=== PATIENT | female | born 1940 | race Caucasian/White ===

== ENCOUNTER → 2023-03-11 | Outpatient (CLI) | payer MEDICARE, OTHER ==
[~2023-03-11] MED LIST: ATEN100T PO; CALC500C16 PO; HYDR12CA PO; LIDOCAINE 1% MDV 20ML VIAL As Ordered ONE; LOTR52CA PO; LOVA40TA PO; MECL-136 PO; NOXI1TAB PO; PROB250C PO; TREL1AER PO; VENTAER INH; VITA-243 PO; VITA-294 PO; [UNRECOGNIZED DRUG - CODE] XX
[2023-03-11 13:30] VITALS: TEMP 96.3
[2023-03-11 14:01] VITALS: BP 187/87; O2SAT 94
== END ==
LOC: M IRPRO 12:41
DX: E04.2 Nontoxic multinodular goiter (principal)

== ENCOUNTER → 2024-05-01 | Outpatient (REF) | payer MEDICARE, OTHER ==
[~2024-05-01] MED LIST changes: -LIDOCAINE 1% MDV 20ML VIAL As Ordered ONE; +NATU400C6 PO; -VITA-294 PO
== END ==
LOC: M WUC 19:22
PROVIDERS: ATTEND Student in an Organized Health Care Education/Training Program
DX: R30.0 Dysuria (principal)